=== PATIENT | male | born 1940 | race Caucasian/White ===

== ENCOUNTER 2019-01-20 15:40 | Emergency (ER) | payer MEDICARE, BC ==
[~2019-01-20] VITALS: Ht 172.7 cm; Wt 74.8 kg
[2019-01-20 16:27] VITALS: BP 151/75
[2019-01-20 17:07] LABS: Urine WBC None Seen /hpf (0 - 3)
[2019-01-20 17:58] LABS: Urine Bacteria NONE SEEN /hpf (None Seen); Urine Blood 3+ /uL (Negative); Urine Specific Gravity 1.009 (1.001-1.035)
== END 2019-01-20 17:41 | disposition home or self-care (01) ==
LOC: ER 15:40
DX: N40.0 Benign prostatic hyperplasia without lower urinary tract symptoms (principal); N39.0 Urinary tract infection, site not specified; R33.9 Retention of urine, unspecified
CPT/HCPCS: 51702; 81001